=== PATIENT | female | born 1975 | race Caucasian/White ===

== ENCOUNTER 2022-05-16 09:33 | Outpatient (RCR) | payer OTHER | END 2022-05-25 | disposition home or self-care (01) | LOC: WSOH | DX: S56.912D Strain of unspecified muscles, fascia and tendons at forearm level, left arm, subsequent encounter (principal); S50.11XD Contusion of right forearm, subsequent encounter; S70.11XD Contusion of right thigh, subsequent encounter; S80.01XD Contusion of right knee, subsequent encounter; Y99.0 Civilian activity done for income or pay; I10 Essential (primary) hypertension; Z90.49 Acquired absence of other specified parts of digestive tract; Z90.710 Acquired absence of both cervix and uterus | CPT/HCPCS: 24091; A6549 ==

== ENCOUNTER 2022-06-09 08:29 | Outpatient (RCR) | payer OTHER | END 2022-06-25 | disposition home or self-care (01) | LOC: WSOH | DX: S56.912D Strain of unspecified muscles, fascia and tendons at forearm level, left arm, subsequent encounter (principal); S50.11XD Contusion of right forearm, subsequent encounter; S70.11XD Contusion of right thigh, subsequent encounter; S80.01XD Contusion of right knee, subsequent encounter; Y99.0 Civilian activity done for income or pay; I10 Essential (primary) hypertension ==